=== PATIENT | female | born 1975 | race Caucasian/White ===

== ENCOUNTER 2025-03-01 10:00 | Outpatient (AMB) | payer OTHER, SELFPAY ==
--- NOTE | 2025-03-01 10:06 | MHC.PC.OV ---
Vital Signs 03/01/25 10:23 Height 5 ft 8 in Weight 188 lb BMI 28.6 BP 120/90 H Blood Pressure Location Lt brachial Position Sitting Respiration 16 Pulse 75 Pulse Source Pulse Oximeter Temp 98.2 F Temp Source Oral Pulse Oximetry (%) 98 Oxygen Delivery Method Room Air Intake Visit Reasons: [employer]/PErequest Intake Note: Pt is here today as a New Patient to est care/ PE Allergies No Known Allergies Allergy (Verified 03/01/25 10:41) Medication List - Last Reconciled 03/01/25 by Tiffany Lerner MD levonorgestrel (Mirena) intrauterine Tobacco use date assessed: 03/01/25 Dental Screening Dental Screen Date: 03/01/25 Did you have a dental visit in the last 12 months?: Yes Did you have a dental problem in the last 6 months where you did not have access to dental care?: Yes Was dental information given to patient?: Patient has dentist HPI [employer]/PErequest HPI Details 49-year-old lady, new to practice, here to establish care with a new PCP and for physical exam. Goes to [facility] for routine Pap and pelvic exam currently on Mirena for control. - Breast cancer screening: High risk due to family history, with regular mammograms, MRIs, and ultrasounds every six monthsfor screening - Prostate cancer: Family history includes her father with stage 4 prostate cancer and her father's uncle. - Diabetes mellitus type 2: Family history with her father on insulin therapy, and the patient is being screened for diabetes. - Hypertension and hyperlipidemia: Family history with her father affected. - Dementia: Maternal grandmother had dementia. - Macular degeneration: Maternal grandfather had macular degeneration. - Fungal toenail infection: Recurrent infection with occasional pain and snagging, not yet evaluated by a book packer. - Anxiety disorder: does not interfere with daily activities. PFSH Medical History Colon cancer screening Presence of Mirena IUD Surgical History (Updated 03/01/25 @ 10:51 by Tiffany Lerner MD) Previous section Hx of breast biopsy Family History (Updated 03/01/25 @ 10:49 by Tiffany Lerner MD) Maternal Aunt Breast CA Mother Breast CA Paternal Grandmother Breast CA Father Prostate cancer Type 2 diabetes mellitus Essential hypertension Dyslipidemia Paternal Uncle Stomach cancer Social History Housing: House Patient Tobacco Use Status: Former Tobacco user e-Cigarette/Vaping Use: Never Used service: No Current occupational status: employed Cognitive needs: No Hearing needs: No Vision needs: Yes Questionnaire PHQ-9 Over the last 2 weeks, how often have you been bothered by any of the following problems? 1. Little interest or pleasure in doing things: not at all 2. Feeling down, depressed, or hopeless: not at all 3. Trouble falling or staying asleep, or sleeping too much: several days 4. Feeling tired or having little energy: several days 5. Poor appetite or overeating: not at all 6. Feeling bad about yourself - or that you are a failure or have let yourself or your family down: not at all 7. Trouble concentrating on things, such as reading the newspaper or watching television: not at all 8. Moving or speaking so slowly that other people could have noticed. Or the opposite - being so fidgety or restless that you have been moving around a lot more than usual: not at all 9. Thoughts that you would be better off or of hurting yourself in some way: not at all Total score: 2 Depression Screening Interpretation: Negative Depression Screening Done: Yes 43324 - PHQ-9 Billing: Yes Source: Developed by Drs. Eldon Soto, Yaa Ballard, Giorgio Vazquez and colleagues, with an educational lissy from [employer]. Thrive Questionnaire Date Thrive assessed: 02/22/25 I am a: Patient What is your living situation today?: I have a steady place to live Within the past 12 months, did the food you bought not last and you didn't have the money to get more?: Never true Within the past 12 months, did you worry whether your food would run out before you got money to buy more?: Never true Do you have trouble paying for medicines?: No Do you have trouble getting transportation to medical appointments?: No Do you have trouble paying your heating and electricity bill?: No Do you have trouble taking care of your child, family member or friend?: No Do you have trouble with day-to-day activities such as bathing, preparing meals, shopping, managing finances, etc.?: No Are you currently unemployed and looking for a job?: No Are you interested in more education?: No Please select the resources that you would like help with: None Currently or been in a relationship where the following occur: No concerns reported THRIVE Score: 0 AUDIT C Alcohol Use Questionnaire (AUDIT-C) 1. How often do you have a drink containing alcohol?: 4 or more times a week 2. How many drinks containing alcohol do you have on a typical day when you are drinking?: 1 or 2 3. How often do you have six or more drinks on one occasion?: Monthly Total Score: 6 Score Reviewed/Action Taken: Yes MELIA-7 AMB Questionnaire MELIA-7 Date MELIA - 7 assessed: 03/01/25 Feeling nervous, anxious, or on edge: 1 = Several days Not being able to stop or control worryin = Several days Worrying too much about different things: 1 = Several days Trouble relaxin = Several days Being so restless that it is hard to sit still: 1 = Several days Becoming easily annoyed or irritable: 1 = Several days Feeling afraid as if something awful might happen: 0 = Not at all Total MELIA-7 score (0-4 normal; 5-9 mild; 10-14 moderate; 15-21 severe): 6 Source: Developed by Drs. Eldon Soto, Yaa Ballard, Giorgio Vazquez and colleagues, with an educational lissy from [employer]. MELIA-7 Assessment Billing MELIA-7 Assessment Tool: MELIA-7 Assessment 70601 Review of Systems Const Denies body aches, Denies fatigue, Denies fever(s) and Denies headache(s) Eyes Denies change in vision ENT Denies dizziness, Denies headache(s) and Denies nasal congestion Card Denies chest pain, Denies lightheadedness, Denies palpitations and Denies dyspnea Resp Denies chest congestion, Denies cough, Denies dyspnea and Denies wheezing GI Denies abdominal pain, Denies change in bowel habits and Denies heartburn Denies hematuria, Denies urinary frequency, Denies dysuria and Denies urinary urgency Skin/Breast Denies breast pain, Denies breast mass, Denies lesions and Denies rash Neuro Denies dizziness and Denies headache(s) Psych Reports no additional complaints Endo Denies fatigue, Denies polydipsia, Denies polyuria and Denies palpitations Hao/Lymph Denies easy bruising Aller/Immun Denies seasonal rhinorrhea and Denies wheezing Physical exam (Primary Care) Vital Signs: Last Vital Signs Temp 98.2 F 03/01/25 10:23 Pulse 75 03/01/25 10:23 Resp 16 03/01/25 10:23 BP 120/90 H 03/01/25 10:23 Pulse Ox 98 03/01/25 10:23 Oxygen Delivery Method Room Air 03/01/25 10:23 BMI result Body Mass Index 28.6 Tobacco/Smoking Status: Tobacco use Status Tobacco use date assessed 03/01/25 03/01/25 10:27 Patient Tobacco Use Status Former Tobacco user 03/01/25 10:27 e-Cigarette/Vaping Use Never Used 03/01/25 10:27 PHQ-9: PHQ-9 Score PHQ-9: Total score 2 03/01/25 10:41 Depression Screening Interpretation: Negative Thrive Assessment: Date of Thrive Assessment Date Thrive assessed 02/22/25 03/01/25 10:06 Currently or been in a relationship where the following occur: No concerns reported Advance Care Planning discussion: Completed/Scanned Date of discussion: 03/01/25 Who was present: Patient Forms completed: Health Care Proxy Time spent: 16-45 minutes Actual minutes spent: 2 Const General: no acute distress and alert Orientation/consciousness: patient oriented x3 HENMT Head: Yes normocephalic Ears: external ears normal General nose exam: Normal external nose present and No nasal discharge present Face and sinus: Yes face symmetric Mouth: Normal oral and palatal mucosa present and moist mucous membranes Eyes General: appearance normal, both eyes and all related structures Neck Neck: Yes full ROM, Yes no lymphadenopathy and Yes supple Thyroid: Thyroid normal Chest Breast/axilla palpation: normal palpation of the breasts Resp Effort & Inspection: normal respiratory effort and able to speak in complete sentences Auscultation: clear to auscultation bilaterally Cardio Rate: regular rate Rhythm: regular rhythm Heart sounds: S1 normal heart sound present and S2 normal heart sound present GI Palpation (GI): Soft to palpation, nontender, no guarding and no masses Auscultation: normal bowel sounds General: Yes no CVA tenderness Back/Spine/Pelvis Back: no CVA tenderness and No back tenderness Skin Other: Grayish discoloration in big toenail on right General skin exam: no rashes or lesions noted Nails: other Neuro General: patient oriented x3, gait normal, moves all extremities, Normal light touch and pain sensation, no focal motor deficits and CN's II-XI intact bilaterally Cognition (Neuro): normal cognition Gait exam (Neuro): Normal gait present Motor exam (neuro): 5/5 motor strength present throughout Extrem General: Yes normal to inspection, Yes full ROM, Yes no joint enlargement, Yes no pedal edema and Yes normal gait Psych Appearance: grossly normal and well kempt Mental Status: mental status grossly normal Speech and movement: Normal speech and movement present Affect: normal affect Attitude: cooperative Thought process: Normal thought process present Coding Level of Care Code New Pt Prev Care 40-64y(73701) Diagnoses Annual visit for general adult medical examination with abnormal findings Z00.01 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 Advance directive discussed with patient Z71.89 Colon cancer screening Z12.11 Additional Codes MELIA-7 Assessment Billing - MELIA-7 Assessment Tool: MELIA-7 Assessment 26539 ([id number]) PHQ-9 - 14002 - PHQ-9 Billing: Yes ([id number]) Vital Signs *Quality* - Advance Care Planning discussion: Completed/Scanned ([id number]) Vital Signs *Quality* - Time spent: 16-45 minutes ([id number]) Assessment & Plan Assessment & Plan (1) Annual visit for general adult medical examination with abnormal findings: Code(s): Z00.01 - Encounter for general adult medical examination with abnormal findings (2) 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 Advanced Directives help patients prepare for current and future decisions about their medical treatment and place of care. Discussed with patient that it is a process where a patients current condition and prognosis are reviewed, their wishes for information regarding their illness are elicited, and likely medical dilemmas are presented and options discussed. Healthcare proxy form completed today. The form can be amended as needed, reviewed yearly and make changes as needed (4) Colon cancer screening: Code(s): Z12.11 - Encounter for screening for malignant neoplasm of colon Category: Medical Plan During the visit, we discussed the patient's high risk for breast cancer due to family history and the importance of regular screenings. The patient is aware of her family history of diabetes and is being screened accordingly. We reviewed her blood pressure readings and discussed the importance of monitoring. The patient is up to date with her vaccinations, and we discussed the need for a tetanus booster. A referral for a colonoscopy was made due to her age and family history. We also addressed her anxiety disorder and heartburn, providing reassurance and management strategies. Orders: Orders Alanine Aminotransferase 03/01/25 Z00.01 - Encounter for general adult medical examination with abnormal findings, Z13.1 - Encounter for screening for diabetes mellitus, Z13.220 - Encounter for screening for lipoid disorders, Z97.5 - Presence of (intrauterine) contraceptive device Aspartate Amino Transferase 03/01/25 Z00.01 - Encounter for general adult medical examination with abnormal findings, Z13.1 - Encounter for screening for diabetes mellitus, Z13.220 - Encounter for screening for lipoid disorders, Z97.5 - Presence of (intrauterine) contraceptive device Basic Metabolic Panel Fasting 03/01/25 Z00.01 - Encounter for general adult medical examination with abnormal findings, Z13.1 - Encounter for screening for diabetes mellitus, Z13.220 - Encounter for screening for lipoid disorders, Z97.5 - Presence of (intrauterine) contraceptive device Complete Blood Count Auto Diff 03/01/25 Z00.01 - Encounter for general adult medical examination with abnormal findings, Z13.1 - Encounter for screening for diabetes mellitus, Z13.220 - Encounter for screening for lipoid disorders, Z97.5 - Presence of (intrauterine) contraceptive device Lipid Panel 03/01/25 Z00.01 - Encounter for general adult medical examination with abnormal findings, Z13.1 - Encounter for screening for diabetes mellitus, Z13.220 - Encounter for screening for lipoid disorders, Z97.5 - Presence of (intrauterine) contraceptive device Vitamin D 25-OH Total 03/01/25 Z00.01 - Encounter for general adult medical examination with abnormal findings, Z13.1 - Encounter for screening for diabetes mellitus, Z13.220 - Encounter for screening for lipoid disorders, Z97.5 - Presence of (intrauterine) contraceptive device Referrals Podiatry Referral 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
[2025-03-01 10:23] VITALS: BP 120/90; PULSE 75; RESP 16; TEMP 36.8; O2SAT 98; BMI 28.6
--- OUTSIDE RECORDS SUMMARY | 2025-03-01 11:20 | XMS_ITS | Clinical Summary ---
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 02/26/2024 Active cholecalciferol (VITAMIN D-3) 1,250 mcg (50,000 unit) capsule Take 1 capsule by mouth once a week. 07/10/2021 Active Active Problems Problem Noted Date Diagnosed Date At high risk for breast cancer 05/12/2024 Overview (05/12/2024): Empower testing from 2023: negative with T/C score of 59.4% Yearly mammogram and breast MRI Abnormal mammogram 05/26/2020 Overview (04/23/2024): Has repeat biopsy scheduled due to BIRADS 4 mammo Anxiety 04/12/2020 Atypical squamous cell toledo es of undetermined significance (ASCUS) on cervical cytology with positive high risk human papilloma virus (HPV) 09/24/2017 Overview (04/23/2024): 03/2013 - Neg, neg HPV 08/2017 - ASCUS, +HPV 09/24/17 - Colpo - MICHAEL I, needs repeat co-testing in 1 year 2018 Negative pap 2019 negative pap Fatigue 05/18/2012 Weight loss 05/18/2012 Tension headache 01/22/2011 Encounters Date Type Department Care Team Description 02/07/2025 9:07 AM EDT - 02/07/2025 11:59 PM EDT Hospital Encounter Radiology Department - [address] [address] Abnormal mammogram Discharge Disposition: Home or Self Care 02/07/2025 9:07 AM EDT - 02/07/2025 11:59 PM EDT Hospital Encounter Radiology Department - [address] [address] Abnormal mammogram Discharge Disposition: Home or Self Care from Last 3 Months Immunizations Name Administration Dates Next Due Influenza trivalent, 0.5mL, preservative free (Fluarix; FluLaval; Fluzone) ages 6mo and older (Afluria) 3 years and older 04/28/2021,03/08/2020,03/21/2018,01/17,03/27/2016,04/08/2015,04/02/2014 ,03/14/2013,02/22/2012 Deltagen SARS-CoV-2 COVID-19, mRNA, LNP-S, preservative free 06/21/2021,08/18/2020,07/28/2020 Pneumococcal polysaccharide 23 valent (Pneumovax 23) 2yo and older 03/27/2016 Td Tetanus diptheria (Tdvax) 7yo and older 01/07/2007 Tdap Tetanus diptheria acell ular pertussis (Boostrix; Adacel) 7yo and older 08/27/2013,01/22/2011 Surgical History Surgery Date Site/Laterality Comments SECTION PROCEDURE: HISTORICAL DELIVERY; COMMENT: 2013 CERVICAL BIOPSY W/ LOOP ELECTRODE EXCISION PROCEDURE: IL CONIZATION CERVIX W/WO D&C RPR ELTRD EXC; COMMENT: prior to having kids (first child born at age 35) BREAST BIOPSY PROCEDURE: BX BREAST; PERC NEEDLE CORE W/IMAG GUID; COMMENT: rt nipple milk duct removed BREAST SURGERY Right PROCEDURE: IL UNLISTED PROCEDURE BREAST; COMMENT: rt milk duct removed near nipple BX BREAST W DEVICE 1ST LESIO N ULTRASOUND GUIDE 01/22/2023 Right fibroadenoma Medical History Medical History Date Comments BRCA negative DX:BRCA negative ASCUS with positive high ris k HPV cervical 09/03/2017 DX:ASCUS with positive high risk HPV cervical Fibroadenoma 05/2020 DX:Fibroadenoma At high risk for breast cancer 05/12/2024 Family History Medical History Relation Name Comments Breast cancer Aunt mat aunt 50's maternal Diabetes Father Other: skin cancer Maternal Grandfather Other: Alzheimer's dis Maternal Grandmother Breast cancer Mother last 40's Stroke Paternal Grandfather of pneumonia in his 70s Breast cancer Paternal Grandmother Colon cancer Uncle worked with asbestos-paternal Ovarian cancer Neg Hx Prostate cancer Neg Hx Uterine cancer Neg Hx Relation Name Status Comments Aunt mat aunt 50's Alive Brother 1 Alive Brother 2 Alive Father Alive dm Maternal Grandfather degenat andres macular eye disease Maternal Grandmother Mother last 40's Alive breast Ca Paternal Grandfather (Age 70's) cva Paternal Grandmother Son 1 Alive healthy; Shiva ; 11/07 Son 2 Alive Uncle Social History Tobacco Use Types Packs/Day Years Used Date Smoking Tobacco: Former Cigarettes Q uit: 02/15/2017 Smokeless Tobacco: Never Tobacco Cessation:Counseling Given: Not Answered Alcohol Use Standard Drinks/Week Comments Yes 1.7 (1 standard drink = 0.6 oz p ure alcohol) Comments No Sex and Gender Information Value Date Recorded Sex Assigned at Not on file Legal Sex Female 8:02 PM EST Gender Identity Not on file Sexual Orientation Not on file Obstetrics History Para Term AB IAB SAB Ectopic Multiple Livin g Live Births 2 2 2 2 Date Outcome GA Total Labor Labor/2nd/3rd Weight Sex Type Anes PTL Nuria A1 A5 Name Clin Term Term Last Filed Vital Signs Vital Sign Reading Time Taken Comments Blood Pressure 127/82 06/01/2024 9:02 AM EST Pulse 67 06/01/2024 9:02 AM EST Temperature - - Respiratory Rate - - Oxygen Saturation - - Inhaled Oxygen Concentration - - Weight 81.2 kg (179 lb) 06/01/2024 9:02 AM EST Height 172.7 cm (5' 8 ) 04/22/2024 9:42 AM EDT Body Mass Index 27.22 04/22/2024 9:42 AM EDT Plan of Treatment Upcoming Encounters Date Type Department Care Team (Late st Contact Info) Description 08/10/2025 9:30 AM EST Appointment Radiology Department - [address] [phone] 08/10/2025 10:00 AM EST Appointment Radiology Department - [address] [address] Health Maintenance Due Date Last Done Comments Hepatitis B Vaccines (1 of 3 - 19+ 3-dose series) 1996 Colorectal Cancer Screening: Colonoscopy 06/08/2022 Social Influencers of Health Screening 06/08/2022 DTaP,Tdap,and Td Vaccines (4 - Td or Tdap) 08/27/2023 08/27/2013, 01/22/2011, 01/07/2007 Depression Screening 06/30/2024 COVID-19 Vaccine ( - season) 2025 06/21/2021, 08/18/2020, 07/28/2020 Influenza Vaccine (#1) 2025 , 04/25/2023, 02/27/2022, Additional history exists Cervical Cancer Screening: HPV 04/12/2025 04/12/2020 Breast Cancer Screening 02/07/2026 02/08/20, 08/17/2024, 08/05/2023, Additional history exists Cholesterol Screening (Lipid Panel) 08/22/2026 08/22/2021 Pneumococcal Vaccine: Pediatrics (0 to 5 Years) and At-Risk Patients (6 to 49 Years) Aged Out 03/27/2016 No longer eligible based on patient's age to complete this topic HIV Screening Completed 07/10/2021 Hepatitis C Screening Completed 07/10/2021 HIB Vaccines Aged Out No longer eligi ble based on patient's age to complete this topic HPV Vaccines Aged Out No longer eligi ble based on patient's age to complete this topic Hepatitis A Vaccines Aged Out No long er eligible based on patient's age to complete this topic IPV Vaccines Aged Out No longer eligi ble based on patient's age to complete this topic MMR Vaccines Aged Out No longer eligi ble based on patient's age to complete this topic Meningococcal ACWY Vaccine Aged Out N o longer eligible based on patient's age to complete this topic Meningococcal B Vaccine Aged Out No l onger eligible based on patient's age to complete this topic RSV Immunization Patients Under 20 months Aged Out No longer eligible based on patient's age to complete this topic Varicella Vaccines Aged Out No longer eligible based on patient's age to complete this topic Procedures Procedure Name Priority Date/Time Associated Diagnosis Comments US BREAST LIMITED RIGHT Routine 02/07/2025 9:30 AM EDT Abnormal mammogram MG MAMMO DIAGNOSTIC ADDL VIEWS RIGHT Routine 02/07/2025 9:17 AM EDT Abnormal mammogram LIPID PANEL Routine 08/22/2021 HM HEPATITIS C SCREENING Routine 07/10/2021 HIV SCREENING Routine 07/10/2021 HPV Routine 04/12/2020 from Last 3 Months or Most Recently Relevant to Health Maintenance Results * US Breast Limited Right (02/07/2025 9:30 AM EDT) Anatomical Region Laterality Modality Breast Right Ultrasound 02/07/2025 9:36 AM EDT Impressions 02/07/2025 9:54 AM EDT No significant interval change in the biopsy-proven fibroadenoma in the inner right breast compared with most recent imaging. No new suspicious features. It had enlarged on breast MRI 06/02/2024. Recommend 6 month follow-up diagnostic mammogram and right breast ultrasound. BREAST DENSITY: C - The breasts are heterogeneously dense which may obscure small masses. BI-RADS CATEGORY: 3 - PROBABLY BENIGN RECOMMENDATION: Short Interval Follow-up is recommended for the right breast in 6 months. Ultrasound of the right breast is recommended in 6 months. MAMMO LOCATION: [facility], [address] [place] [address], [phone], . -------- FINAL REPORT -------- Dictated By: Brenna Palomares Dictated Date: 02/07/2025 09:36 ET Assigned Physician: Brenna Palomares Reviewed and Electronically Signed By: Brenna Palomares Signed Date: 02/07/2025 09:54 ET Workstation ID: [id number] Transcribed By: Self Edit Transcribed Date: 02/07/2025 09:36 ET Narrative 02/07/2025 9:54 AM EDT EXAM: Unilateral right diagnostic mammogram and right breast ultrasound HISTORY: Follow-up enlarging biopsy-proven fibroadenoma (01/22/2023) in the inner right breast as seen on breast MRI 06/02/2024, right breast ultrasound 06/09/2024, and mammography 08/17/2024. COMPARISON: Mammography as recent as 08/17/2024 and as far back as 07/24/2021; right breast ultrasound 06/09/2024 and 01/14/2023; breast MRI exams as recent as 06/02/2024 TECHNIQUE: Unilateral right mediolateral oblique and craniocaudal views were obtained digitally with 3-D mammogram (digital breast tomosynthesis). Computer-aided detection was utilized in evaluation of this exam (CAD). FINDINGS: Compared with the most recent mammogram from 08/17/2024, stable to slight decrease in size of the biopsy-proven fibroadenoma in the inner breast at 2/3 o'clock position middle depth with an associated biopsy clip. Margins remain circumscribed and smooth. No new suspicious mass, architectural distortion, or suspicious calcifications. Targeted sonography of the biopsy-proven fibroadenoma performed at the 2 o'clock position, 2 cm from the nipple. The homogeneous hypoechoic lesion remains circumscribed and measures 1.1 x 1.0 x 0.6 cm compared with 1.2 x 1.1 x 0.6 cm on 06/09/2024. us Papi Willis CNM IMG US PROCEDURES Final Resul t * MG Mammo Diagnostic Addl Views Right (02/07/2025 9:17 AM EDT) Anatomical Region Laterality Modality Breast Right Mammography 02/07/2025 9:36 AM EDT Impressions 02/07/2025 9:54 AM EDT No significant interval change in the biopsy-proven fibroadenoma in the inner right breast compared with most recent imaging. No new suspicious features. It had enlarged on breast MRI 06/02/2024. Recommend 6 month follow-up diagnostic mammogram and right breast ultrasound. BREAST DENSITY: C - The breasts are heterogeneously dense which may obscure small masses. BI-RADS CATEGORY: 3 - PROBABLY BENIGN RECOMMENDATION: Short Interval Follow-up is recommended for the right breast in 6 months. Ultrasound of the right breast is recommended in 6 months. MAMMO LOCATION: [facility], [address] [place] [address], [id number], . -------- FINAL REPORT -------- Dictated By: Brenna Palomares Dictated Date: 02/07/2025 09:36 ET Assigned Physician: Brenna Palomares Reviewed and Electronically Signed By: Brenna Palomares Signed Date: 02/07/2025 09:54 ET Workstation ID: [id number] Transcribed By: Self Edit Transcribed Date: 02/07/2025 09:36 ET Narrative 02/07/2025 9:54 AM EDT EXAM: Unilateral right diagnostic mammogram and right breast ultrasound HISTORY: Follow-up enlarging biopsy-proven fibroadenoma (01/22/2023) in the inner right breast as seen on breast MRI 06/02/2024, right breast ultrasound 06/09/2024, and mammography 08/17/2024. COMPARISON: Mammography as recent as 08/17/2024 and as far back as 07/24/2021; right breast ultrasound 06/09/2024 and 01/14/2023; breast MRI exams as recent as 06/02/2024 TECHNIQUE: Unilateral right mediolateral oblique and craniocaudal views were obtained digitally with 3-D mammogram (digital breast tomosynthesis). Computer-aided detection was utilized in evaluation of this exam (CAD). FINDINGS: Compared with the most recent mammogram from 08/17/2024, stable to slight decrease in size of the biopsy-proven fibroadenoma in the inner breast at 2/3 o'clock position middle depth with an associated biopsy clip. Margins remain circumscribed and smooth. No new suspicious mass, architectural distortion, or suspicious calcifications. Targeted sonography of the biopsy-proven fibroadenoma performed at the 2 o'clock position, 2 cm from the nipple. The homogeneous hypoechoic lesion remains circumscribed and measures 1.1 x 1.0 x 0.6 cm compared with 1.2 x 1.1 x 0.6 cm on 06/09/2024. Self Referral scm IMG BI PROCEDURES Final Resu lt * (ABNORMAL) Lipid panel (08/22/2021) [facility] LDL/HDL Ratio 5(A) 0 - 4 Triglycerides 186(A) 0 - 150 mg/dL Cholesterol 238(A) 0 - 200 mg/dL HDL 49 >=40 mg/dL LDL Cholesterol 152(A) 0 - 100 mg/dL Blood Venous blood specimen / Unknown Result [facility] Provider LAB BLOOD ORDERABLES Anjali l Result * HIV Screening (07/10/2021) [facility] HIV Screening Abstracted Result [facility] Provider HEALTH MAINTENANCE Final Result * Hepatitis C Screening (07/10/2021) [facility] Hepatitis C Screening Abstracted Result [facility] Provider HEALTH MAINTENANCE Final Result * Cervical Cancer Screening: HPV (04/12/2020) [facility] Cervical Cancer Screening: HPV Negative, Abstracted Result [facility] Provider HEALTH MAINTENANCE Final Result from Last 3 Months or Most Recently Relevant to Health Maintenance Insurance Care Teams 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
--- OUTSIDE RECORDS SUMMARY | 2025-03-01 11:20 | XMS_ITS ---
Author Name [facility] Organization Unknown Care Team Organization Name Specialty Phone Email Start Date End [facility] 03/28/2023
== END 2025-03-01 16:49 | disposition home or self-care (01) ==
LOC: HO.HMCC 10:01
PROVIDERS: PCP Internal Medicine; Visit Provider Internal Medicine
DX: Z00.01 Encounter for general adult medical examination with abnormal findings (principal); Q84.6 Other congenital malformations of nails; Z71.89 Other specified counseling; Z12.11 Encounter for screening for malignant neoplasm of colon; Z00.00 Encounter for general adult medical examination without abnormal findings

== ENCOUNTER → 2025-03-01 10:00 | Outpatient (BNVA) | payer OTHER, SELFPAY | PROVIDERS: PCP Internal Medicine; Visit Provider Internal Medicine | DX: Z00.01 Encounter for general adult medical examination with abnormal findings (principal); E11.9 Type 2 diabetes mellitus without complications; Q84.6 Other congenital malformations of nails; I10 Essential (primary) hypertension; E78.5 Hyperlipidemia, unspecified; F03.90 Unspecified dementia, unspecified severity, without behavioral disturbance, psychotic disturbance, mood disturbance, and anxiety; Z71.89 Other specified counseling | CPT/HCPCS: 96127 ==

== ENCOUNTER 2025-03-24 08:40 | Outpatient (REF) | payer OTHER, SELFPAY ==
--- OUTSIDE RECORDS SUMMARY | 2025-03-24 09:14 | XMS_ITS | Clinical Summary ---
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 Sewer Name Role Phone Dio Biggs MD Primary Care Provider [phone]- [phone] Allergies No known active allergies Medications L [...] PM EDT Hospital Encounter Radiology Department - [address] [phone] Abnormal mammogram Discharge Disposition: Home or Self Care 02/07/2025 9:07 AM EDT - 02/07/2025 11:59 PM EDT Hospital Encounter Radiology Department - [address] [address] Abnormal mammogram Discharge Disposition: Home or Self Care from Last 3 Months Immunizations Name Administration Dates Next Due Influenza trivalent, 0.5mL, preservative free (Fluarix; FluLaval; Fluzone) ages 6mo and older (Afluria) 3 years and older 04/28/2021,03/08/2020,03/21/2018,01/17,03/27/2016,04/08/2015,04/02/2014 ,03/14/2013,02/22/2012 [employer] SARS-CoV-2 COVID-19, mRNA, LNP-S, preservative free 06/21/2021,08/18/2020,07/28/2020 Pneumococcal polysaccharide 23 valent (Pneumovax 23) 2yo and older 03/27/2016 Td Tetanus diptheria (Tdvax) 7yo and older 01/07/2007 Tdap Tetanus diptheria acell ular pertussis (Boostrix; Adacel) 7yo and older 08/27/2013,01/22/2011 Surgical History Surgery Date Site/Laterality Comments SECTION PROCEDURE: HISTORICAL DELIVERY; COMMENT: 2013 CERVICAL BIOPSY W/ LOOP ELECTRODE EXCISION PROCEDURE: IN CONIZATION CERVIX W/WO D&C RPR ELTRD EXC; COMMENT: prior to having kids (first child born at age 35) BREAST BIOPSY PROCEDURE: BX BREAST; PERC NEEDLE CORE W/IMAG GUID; COMMENT: rt nipple milk duct removed BREAST SURGERY Right PROCEDURE: IN UNLISTED PROCEDURE BREAST; COMMENT: rt milk duct [...] 9:30 AM EST Appointment Radiology Department - [address] [phone] 08/10/2025 10:00 AM EST Appointment Radiology Department - [address] [phone] Health Maintenance Due Date Last Done Comments [...] is recommended in 6 months. MAMMO LOCATION: [facility], [address] [place] [address], [phone], . -------- FINAL REPORT -------- Dictated By: Brenna Palomares Dictated Date: 02/07/2025 09:36 ET Assigned Physician: Brenna Palomares Reviewed and Electronically Signed By: Brenna Palomares Signed Date: 02/07/2025 09:54 ET Workstation ID: [id number] Transcribed By: Self Edit Transcribed Date: 02/07/2025 [...] is recommended in 6 months. MAMMO LOCATION: [facility], [address] [place] [address], [phone], . -------- FINAL REPORT -------- Dictated By: Brenna Palomares Dictated Date: 02/07/2025 09:36 ET Assigned Physician: Brenna Palomares Reviewed and Electronically Signed By: Brenna Palomares Signed Date: 02/07/2025 09:54 ET Workstation ID: [id number] Transcribed By: Self Edit Transcribed Date: 02/07/2025 [...] Resu lt * (ABNORMAL) Lipid panel (08/22/2021) [facility] LDL/HDL Ratio 5(A) 0 - 4 Triglycerides 186(A) 0 - 150 mg/dL Cholesterol 238(A) 0 - 200 mg/dL HDL 49 >=40 mg/dL LDL Cholesterol 152(A) 0 - 100 mg/dL Blood Venous blood specimen / Unknown Result [facility] Provider LAB BLOOD ORDERABLES Anjali l Result * HIV Screening (07/10/2021) [facility] HIV Screening Abstracted Result [facility] Provider HEALTH MAINTENANCE Final Result * Hepatitis C Screening (07/10/2021) [facility] Hepatitis C Screening Abstracted Result [facility] Provider HEALTH MAINTENANCE Final Result * Cervical Cancer Screening: HPV (04/12/2020) [facility] Cervical Cancer Screening: HPV Negative, Abstracted Result [facility] Provider HEALTH MAINTENANCE Final Result from Last 3 Months or Most Recently Relevant to Health Maintenance Insurance Care Teams Sleeve Sewer Relationship Specialty Start Date End Date Dio Biggs MD [address] [place] [address] PCP - General Internal Medicine 11/12/21
[2025-03-24 10:19] LABS: MANUAL DIFF FLAG NO
[2025-03-24 10:30] LABS: Hematocrit 42.0 % (37.0-47.0); Hemoglobin 14.1 g/dl (12.0-16.0); Imm Gran Abs Auto 0.01 X10*3/uL (0.00-0.03); Imm Gran Pct Auto 0.2 % (0.0-0.4); Lymphocytes Absolute Auto 1.4 X10*3/uL (1.2-4.9); Mean Corpuscular HGB Conc 33.6 g/dl (31.0-35.0); Mean Corpuscular Hemoglobin 30.2 pg (27.0-33.0); Mean Corpuscular Volume 89.9 fL (80.0-98.0); NRBC Abs Auto 0.000 X10*3/uL (0.0-0.012); NRBC Pct Auto 0.0 /100WBC (0.0-0.2); Platelet Count 265 X10*3/uL (160-400); Red Blood Count 4.67 X10*6/uL (4.20-5.50); White Blood Count 4.1 X10*3/uL (4.8-10.8)
[2025-03-24 11:08] LABS: Alanine Aminotransferase 22 U/L (0-31); Anion Gap 8 (12-20); Aspartate Amino Transferase 20 U/L (5-31); Blood Urea Nitrogen 16 mg/dL (9-16); Calcium 9.0 mg/dL (8.4-10.2); Carbon Dioxide 29 mmol/L (22-29); Chloride 108 mmol/L (96-108); Cholesterol 248 mg/dL (<200); Estimated Glomerular Filt Rate > 60; HDL Cholesterol 48 mg/dL (>40); Potassium 4.3 mmol/L (3.3-5.1); Sodium 141 mmol/L (135-145); Triglycerides 82 mg/dL (<150)
== END 2025-03-24 08:41 | disposition home or self-care (01) ==
LOC: HO.HMGCLDS 08:40
PROVIDERS: PCP Internal Medicine; Visit Provider Internal Medicine
DX: Z00.01 Encounter for general adult medical examination with abnormal findings (principal); Z13.220 Encounter for screening for lipoid disorders; Z13.1 Encounter for screening for diabetes mellitus; Z97.5 Presence of (intrauterine) contraceptive device; Z13.6 Encounter for screening for cardiovascular disorders; Z13.21 Encounter for screening for nutritional disorder
CPT/HCPCS: 36415; 80048; 80061; 82306; 84450; 84460; 85025

== ENCOUNTER 2025-04-06 08:36 | Outpatient (REF) | payer OTHER, SELFPAY | END 2025-04-06 08:37 | disposition home or self-care (01) | LOC: HO.LNP 08:36 | PROVIDERS: PCP Internal Medicine; Visit Provider Student in an Organized Health Care Education/Training Program | DX: B35.1 Tinea unguium (principal); B35.3 Tinea pedis | CPT/HCPCS: 87101; 87220; 88304; 88312 ==

== ENCOUNTER 2025-04-06 08:36 | Outpatient (AMB) | payer OTHER, SELFPAY ==
[2025-04-06 08:41] VITALS: BMI 28.1
--- NOTE | 2025-04-06 08:41 | A.OFFVIS_ITS ---
Vital Signs 04/06/25 08:41 Height 5 ft 8 in Weight 185 lb BMI 28.1 Intake Visit Reasons: malformation of nails Intake Note: Madison is a 49 year old female who presents today as a new patient for an evaluation of her malformed toenail of the right hallux. The toe nail has a yellowish discoloration and pt states her toe nail persist with infection which will lead to the nail falling off. she states she is not in any pain and she has tried OTC treatment. This has been an ongoing issue for about 2 years. Pt has concerns of a possible ingrown on the medial border of the right hallux. Allergies No Known Allergies Allergy (Verified 04/06/25 08:42) HPI HPI malformation of nails: Details: The patient is a 49-year-old female no pertinent past medical history presents for initial evaluation for right big toenail possible fungal infection. The issue began approximately two years ago, following a pedicure received for her wedding. The patient has not sought prior podiatric care or used prescription medications, relying instead on topical treatments without improvement. The toenail has fallen off multiple times, with the most recent occurrence four weeks ago. The nail regrowth has been abnormal, with discoloration and fragmentation noted. She does have a history of a ingrown toenail to her right big toe which was removed by a direct care supervisor when she was younger. She notes that still grows fragmented and is interested in treatment for his. The patient also reports symptoms consistent with tinea pedis, including itching and flaking of the skin on the right foot, particularly in the summer. No prior treatments for tinea pedis have been attempted. Surgical History: - Dingle procedure in childhood for nail issues Social History: - Limited physical activity; occasional walking with sneakers PFSH Medical History Colon cancer screening Presence of Mirena IUD Surgical History (Updated 03/01/25 @ 10:51 by Tiffany Lerner MD) Previous section Hx of breast biopsy Family History (Updated 03/01/25 @ 10:49 by Tiffany Lerner MD) Maternal Aunt Breast CA Mother Breast CA Paternal Grandmother Breast CA Father Prostate cancer Type 2 diabetes mellitus Essential hypertension Dyslipidemia Paternal Uncle Stomach cancer Social History Housing: House Patient Tobacco Use Status: Former Tobacco user e-Cigarette/Vaping Use: Never Used service: No Current occupational status: employed Cognitive needs: No Hearing needs: No Vision needs: Yes Review of Systems Const All systems reviewed & are unremarkable except as noted in HPI and below Physical Exam Vital Signs: BMI result Body Mass Index 28.1 Extrem Other: *Bilateral Lower Extremity Focused Exam Vascular: DP/PT 2/4, CFT<3s to all digits, TG warm to cool, no pedal edema. Derm: brittle, short, right hallux nail with yellow discoloration and fragmented nail worse of the medial nail border. Right 5th, left hallux, and left 5th toe nail discoloration and thickening, minimal subungual debris. Neuro: Protective sensation intact to bilateral lower extremities MSK: No pain on palpation of the medial border right hallux. Results Reviewed Results Reviewed: Laboratory Tests 03/24/25 09:00 AST 20 ALT 22 Assessment & Plan Assessment & Plan (1) Tinea unguium: Code(s): B35.1 - Tinea unguium Category: Medical Plan: * Nail biopsy performed of bilateral hallux nail. * Discussed treatment options including topical treatment versus oral antifungal medications. * Explained that oral antifungals such as terbinafine (Lamisil) may cause gastro intestinal upset, headache, rash, taste disturbances, and hepatotoxicity. Baseline and monthly liver function monitoring is recommended during therapy. Patients should be advised to report symptoms such as jaundice, dark urine, or persistent nausea. * Patient was counseled on the importance of anti-fungal foot hygiene, including daily washing and thorough drying of feet, regular changing of socks, and use of breathable footwear. Recommended antifungal sprays shoes. Education provided on keeping toenails trimmed and clean to reduce risk of fungal infections. Preventive strategies discussed to minimize recurrence of fungal infections. * Discussed that she may need a total nail avulsion of the right hallux if the remaining aspects of the nail do not fall off on its own. * Follow up in 3 weeks. (2) Tinea pedis: Code(s): B35.3 - Tinea pedis Category: Medical Qualifiers: Laterality: right Qualified Code(s): B35.3 - Tinea pedis Plan: * Rx clotrimazole ointment Orders: Orders Fungus Cult Hair/Skin/Nail Today B35.1 - Tinea unguium Surgical Today B35.1 - Tinea unguium Medications: New clotrimazole 1% (Antifungal (clotrimazole)) Apply to bottom of feet daily. 1 appl topical BID 30 grams 3RF athlete's foot 4 weeks B35.3 - Tinea pedis Coding Level of Care Code New Pt Level 4 (56213) Diagnoses Tinea unguium B35.1 Tinea pedis of right foot B35.3 Laterality: right Time Spent (min) 30
== END 2025-04-06 09:04 | disposition home or self-care (01) ==
LOC: HO.HPODS 08:36
PROVIDERS: PCP Internal Medicine; Visit Provider Student in an Organized Health Care Education/Training Program
DX: B35.1 Tinea unguium (principal); B35.3 Tinea pedis
CPT/HCPCS: 99204

== ENCOUNTER 2025-05-04 13:18 | Outpatient (AMB) | payer OTHER, SELFPAY ==
[2025-05-04 13:40] VITALS: BMI 28.1
--- NOTE | 2025-05-04 13:40 | A.OFFVIS_ITS ---
Vital Signs 05/04/25 13:40 Height 5 ft 8 in Weight 185 lb BMI 28.1 Intake Visit Reasons: malformation of nails Intake Note: Madison is a 49 year old female who presents today for a follow up on her malformed nails. During her last visit her nails where debrided and specimens where sent out, the results are in patients chart. Patient reports her nails has remained the same Allergies No Known Allergies Allergy (Verified 05/04/25 13:42) HPI HPI malformation of nails: Details: The patient is a 49-year-old female no pertinent past medical history presents for nail pathology review. She has also been using topical clotrimazole to her right foot however she does not notice any improvement. History: The issue began approximately two years ago, following a pedicure received for her wedding. The patient has not sought prior podiatric care or used prescription medications, relying instead on topical treatments without improvement. The toenail has fallen off multiple times, with the most recent occurrence four weeks ago. The nail regrowth has been abnormal, with discoloration and fragmentation noted. She does have a history of a ingrown toenail to her right big toe which was removed by a color laboratory technician when she was younger. She notes that still grows fragmented and is interested in treatment for his. The patient also reports symptoms consistent with tinea pedis, including itching and flaking of the skin on the right foot, particularly in the summer. No prior treatments for tinea pedis have been attempted. Surgical History: - Dingle procedure in childhood for nail issues Social History: - Limited physical activity; occasional walking with sneakers PFSH Medical History Colon cancer screening Presence of Mirena IUD Surgical History (Updated 03/01/25 @ 10:51 by Tiffany Lerner MD) Previous section Hx of breast biopsy Family History (Updated 03/01/25 @ 10:49 by Tiffany Lerner MD) Maternal Aunt Breast CA Mother Breast CA Paternal Grandmother Breast CA Father Prostate cancer Type 2 diabetes mellitus Essential hypertension Dyslipidemia Paternal Uncle Stomach cancer Social History Housing: House Patient Tobacco Use Status: Former Tobacco user e-Cigarette/Vaping Use: Never Used service: No Current occupational status: employed Cognitive needs: No Hearing needs: No Vision needs: Yes Review of Systems Const All systems reviewed & are unremarkable except as noted in HPI and below Physical Exam Vital Signs: BMI result Body Mass Index 28.1 Extrem Other: *Bilateral Lower Extremity Focused Exam Vascular: DP/PT 2/4, CFT<3s to all digits, TG warm to cool, no pedal edema. Derm: brittle, short, right hallux nail with yellow discoloration and fragmented nail worse of the medial nail border. Right 5th, left hallux, and left 5th toe nail discoloration and thickening, minimal subungual debris. Neuro: Protective sensation intact to bilateral lower extremities MSK: No pain on palpation of the medial border right hallux. Results Reviewed Results Reviewed: Fungus Cult Hair/Skin/Nail Final 05/02/25-1323 Fungus present on culture. Does not resemble a dermatophyte. Multiple morphologic types. Result: Trichophyton species 04/06/25 Pathology Diagnosis Nail, right and left hallux (clippings): -Nail with rare fungal hyphae consistent with onychomycosis Assessment & Plan Assessment & Plan (1) Tinea unguium: Code(s): B35.1 - Tinea unguium Category: Medical Plan: * Reviewed nail pathology and culture results with the patient. * Discussed treatment options including topical treatment versus oral antifungal medications. * Explained that oral antifungals such as terbinafine (Lamisil) may cause gastrointestinal upset, headache, rash, taste disturbances, and hepatotoxicity. Baseline and monthly liver function monitoring is recommended during therapy. Patients should be advised to report symptoms such as jaundice, dark urine, or persistent nausea. * Patient was counseled on the importance of anti-fungal foot hygiene, including daily washing and thorough drying of feet, regular changing of socks, and use of breathable footwear. Recommended antifungal sprays shoes. Education provided on keeping toenails trimmed and clean to reduce risk of fungal infections. Preventive strategies discussed to minimize recurrence of fungal infections. * Patient states that she likely trial topical treatment at this time. * Rx ciclopirox * Follow up 3 months (2) Tinea pedis: Code(s): B35.3 - Tinea pedis Category: Medical Qualifiers: Laterality: right Qualified Code(s): B35.3 - Tinea pedis Plan: * Continue topical clotrimazole * May refer for alternative topical medication by next visit Medications: New ciclopirox 8% Apply to fungal toenails daily. Remove build-up at the end of the week. 1 appl topical BEDTIME 6.6 mL 4RF Nail fungus 4 months B35.1 - Tinea unguium Coding Level of Care Code Est Pt Level 3 (65139) Diagnoses Tinea unguium B35.1 Tinea pedis of right foot B35.3 Laterality: right Time Spent (min) 25
== END 2025-05-04 13:46 | disposition home or self-care (01) ==
LOC: HO.HPODS 13:19
PROVIDERS: PCP Internal Medicine; Visit Provider Student in an Organized Health Care Education/Training Program
DX: B35.1 Tinea unguium (principal); B35.3 Tinea pedis
CPT/HCPCS: 99213

== ENCOUNTER 2025-05-25 11:04 | Outpatient (AMB) | payer OTHER, SELFPAY ==
[2025-05-25 11:33] VITALS: BP 116/80; PULSE 67; RESP 16; TEMP 36.7; O2SAT 96; BMI 29.2
--- NOTE | 2025-05-25 11:33 | A.OFFPC_ITS ---
Vital Signs 05/25/25 11:33 Height 5 ft 8 in Weight 192 lb BMI 29.2 BP 116/80 Blood Pressure Location Lt brachial Position Sitting Respiration 16 Pulse 67 Pulse Source Pulse Oximeter Temp 98.0 F Temp Source Oral Pulse Oximetry (%) 96 Oxygen Delivery Method Room Air Intake Visit Reasons: Blood test results followup and menopause Intake Note: Pt is here today for her lab f/u results Allergies No Known Allergies Allergy (Verified 05/25/25 13:11) Medication List - Last Reconciled 05/25/25 by Tiffany Lerner MD ciclopirox 8% 1 appl topical BEDTIME 4 months clotrimazole 1% 1 appl topical BID 1 month levonorgestrel (Mirena) intrauterine Tobacco use date assessed: 05/25/25 Dental Screening Dental Screen Date: 05/25/25 Did you have a dental visit in the last 12 months?: Yes Did you have a dental problem in the last 6 months where you did not have access to dental care?: Yes Was dental information given to patient?: Patient has dentist HPI Blood test results followup and menopause HPI Details The patient is a 49 year old individual presenting for review of blood work and discussion of perimenopausal symptoms. Recent lab results show borderline cholesterol, normal blood sugar of 87, and normal kidney and liver function. The patient is overweight but does not have hypertension or diabetes. The patient previously followed the Weight Watchers diet with good results but is not on a specific diet currently. The patient is experiencing perimenopausal symptoms including feeling hot, mood swings, and brain fog, despite being on a Mirena IUD . The patient reports disturbed sleep due to pain in the shoulders and hips from lying on them, which causes frequent tossing and turning. The patient has been taking Advil PM to help with sleep. The patient also reports snoring, which was worse with increased alcohol intake but has improved with reduced consumption. The patient has received the flu shot and is up-to-date with COVID immunizations. PFSH Medical History Dyslipidemia Colon cancer screening Presence of Mirena IUD Surgical History Previous section Hx of breast biopsy Family History (Updated 05/29/25 @ 16:20 by Tiffany Lerner MD) Maternal Aunt Breast CA Mother Breast CA Paternal Grandmother Breast CA Father Prostate cancer Type 2 diabetes mellitus Essential hypertension Dyslipidemia Atrial fibrillation Paternal Uncle Stomach cancer Social History Housing: House Patient Tobacco Use Status: Former Tobacco user e-Cigarette/Vaping Use: Never Used service: No Current occupational status: employed Cognitive needs: No Hearing needs: No Vision needs: Yes Questionnaire PHQ-9 Over the last 2 weeks, how often have you been bothered by any of the following problems? 1. Little interest or pleasure in doing things: not at all 2. Feeling down, depressed, or hopeless: not at all 3. Trouble falling or staying asleep, or sleeping too much: several days 4. Feeling tired or having little energy: several days 5. Poor appetite or overeating: not at all 6. Feeling bad about yourself - or that you are a failure or have let yourself or your family down: not at all 7. Trouble concentrating on things, such as reading the newspaper or watching television: not at all 8. Moving or speaking so slowly that other people could have noticed. Or the opposite - being so fidgety or restless that you have been moving around a lot more than usual: not at all 9. Thoughts that you would be better off or of hurting yourself in some way: not at all Total score: 2 Depression Screening Interpretation: Negative Depression Screening Done: Yes Source: Developed by Drs. Eldon Soto, Yaa Ballard, Giorgio Vazquez and colleagues, with an educational lissy from [employer]. Thrive Questionnaire Date Thrive assessed: 02/22/25 I am a: Patient What is your living situation today?: I have a steady place to live Within the past 12 months, did the food you bought not last and you didn't have the money to get more?: Never true Within the past 12 months, did you worry whether your food would run out before you got money to buy more?: Never true Do you have trouble paying for medicines?: No Do you have trouble getting transportation to medical appointments?: No Do you have trouble paying your heating and electricity bill?: No Do you have trouble taking care of your child, family member or friend?: No Do you have trouble with day-to-day activities such as bathing, preparing meals, shopping, managing finances, etc.?: No Are you currently unemployed and looking for a job?: No Are you interested in more education?: No Please select the resources that you would like help with: None Currently or been in a relationship where the following occur: No concerns reported THRIVE Score: 0 MELIA-7 AMB Questionnaire MELIA-7 Date MELIA - 7 assessed: 03/01/25 Feeling nervous, anxious, or on edge: 1 = Several days Not being able to stop or control worryin = Several days Worrying too much about different things: 1 = Several days Trouble relaxin = Not at all Being so restless that it is hard to sit still: 1 = Several days Becoming easily annoyed or irritable: 1 = Several days Feeling afraid as if something awful might happen: 0 = Not at all Total MELIA-7 score (0-4 normal; 5-9 mild; 10-14 moderate; 15-21 severe): 5 Source: Developed by Drs. Eldon Soto, Yaa Ballard, Giorgio Vazquez and colleagues, with an educational lissy from [employer]. Review of Systems Const Denies body aches, Denies fatigue, Denies fever(s) and Denies headache(s) Eyes Denies change in vision ENT Denies dizziness, Denies headache(s) and Denies nasal congestion Card Denies chest pain, Denies lightheadedness, Denies palpitations and Denies dyspnea Resp Denies chest congestion, Denies cough, Denies dyspnea and Denies wheezing GI Denies abdominal pain, Denies change in bowel habits and Denies heartburn Denies hematuria, Denies urinary frequency, Denies dysuria and Denies urinary urgency Skin/Breast Denies breast pain, Denies breast mass, Denies lesions and Denies rash Neuro Denies dizziness and Denies headache(s) Psych Reports no additional complaints Endo Denies fatigue, Denies polydipsia, Denies polyuria and Denies palpitations Hao/Lymph Denies easy bruising Aller/Immun Denies seasonal rhinorrhea and Denies wheezing Physical exam (Primary Care) Vital Signs: Last Vital Signs Temp 98.0 F 05/25/25 11:33 Pulse 67 05/25/25 11:33 Resp 16 05/25/25 11:33 BP 116/80 05/25/25 11:33 Pulse Ox 96 05/25/25 11:33 Oxygen Delivery Method Room Air 05/25/25 11:33 BMI result Body Mass Index 29.2 Tobacco/Smoking Status: Tobacco use Status Tobacco use date assessed 05/25/25 05/25/25 11:38 Patient Tobacco Use Status Former Tobacco user 05/25/25 11:38 e-Cigarette/Vaping Use Never Used 05/25/25 11:38 PHQ-9: PHQ-9 Score PHQ-9: Total score 2 05/25/25 13:11 Depression Screening Interpretation: Negative Thrive Assessment: Date of Thrive Assessment Date Thrive assessed 02/22/25 05/25/25 11:38 Currently or been in a relationship where the following occur: No concerns reported Const General: no acute distress and alert Orientation/consciousness: patient oriented x3 HENMT Head: Yes normocephalic Ears: external ears normal General nose exam: Normal external nose present and No nasal discharge present Face and sinus: Yes face symmetric Mouth: Normal oral and palatal mucosa present and moist mucous membranes Eyes General: appearance normal, both eyes and all related structures Neck Neck: Yes full ROM, Yes no lymphadenopathy and Yes supple Thyroid: Thyroid normal Resp Effort & Inspection: normal respiratory effort and able to speak in complete sentences Auscultation: clear to auscultation bilaterally Cardio Rate: regular rate Rhythm: regular rhythm Heart sounds: S1 normal heart sound present and S2 normal heart sound present GI Palpation (GI): Soft to palpation, nontender, no guarding and no masses Auscultation: normal bowel sounds General: Yes no CVA tenderness Back/Spine/Pelvis Back: no CVA tenderness and No back tenderness Skin General skin exam: no rashes or lesions noted Nails: other Neuro General: patient oriented x3, gait normal, moves all extremities, Normal light touch and pain sensation, no focal motor deficits and CN's II-XI intact bilaterally Cognition (Neuro): normal cognition Gait exam (Neuro): Normal gait present Motor exam (neuro): 5/5 motor strength present throughout Extrem General: Yes normal to inspection, Yes full ROM, Yes no joint enlargement, Yes no pedal edema and Yes normal gait Psych Appearance: grossly normal and well kempt Mental Status: mental status grossly normal Speech and movement: Normal speech and movement present Affect: normal affect Results Reviewed Results Reviewed: Name: Madison Bray Age/Sex: 49/F : 1975 Unit#: [id number] Attend Dr: Tiffany Lerner MD Re03/24/25 Status: DEP REF [facility] Disch: SPEC : [id number] TELLY: 03/24/25 STATUS: COMP REQ : [id number] RECD: 03/24/25-[address]: Tiffany Lerner MD COMP: 03/24/25 ENTERED: 03/24/[address] [facility] [address]: ORDERED: CBC Auto Diff Test Result Flag Reference WBC 4.1 L 4.8-10.8 X10*3/uL RBC 4.67 4.20-5.50 X10*6/uL HGB 14.1 12.0-16.0 g/dl HCT 42.0 37.0-47.0 % MCV 89.9 80.0-98.0 fL MCH 30.2 27.0-33.0 pg MCHC 33.6 31.0-35.0 g/dl RDW 13.4 11.0-16.0 % PLT 265 160-400 X10*3/uL MPV 10.1 9.4-12.3 fL Neut Pct Auto 54.0 45-73 % ImGran Pct Auto 0.2 0.0-0.4 % Lymp Pct Auto 32.9 20-40 % Lee Pct Auto 8.5 2-11 % Eos Pct Auto 2.9 0-4 % Baso Pct Auto 1.5 0-2 % NRBC Pct Auto 0.0 0.0-0.2 /100WBC ANC Neut Abs # 2.2 2.0-8.3 x10*3/uL ImGran Abs Auto 0.01 0.00-0.03 X10*3/uL Lymph Abs Auto 1.4 1.2-4.9 X10*3/uL Lee Abs Auto 0.4 0.1-1.2 X10*3/uL Eos Abs Auto 0.1 0.0-0.4 X10*3/uL Baso Abs Auto 0.1 0.0-0.2 X10*3/uL NRBC Abs Auto 0.000 0.0-0.012 X10*3/uL Name: Madison Bray Age/Sex: 49/F : 1975 Unit#: [id number] Attend Dr: Tiffany Lerner MD Re03/24/25 Status: DEP [facility] Disch: SPEC : [id number] TELLY: 03/24/25 STATUS: COMP REQ : [id number] RECD: 03/24/25-[address]: Tiffany Lerner MD COMP: 03/24/25 ENTERED: 03/24/[address]: ORDERED: Met Prof Fast, AST, ALT, Lipid Panel, Vitamin D 25-OH Test Result Flag Reference Sodium 141 135-145 mmol/L Potassium 4.3 3.3-5.1 mmol/L CL 108 96-108 mmol/L CO2 29 22-29 mmol/L Gap 8 L 12-20 BUN 16 9-16 mg/dL Creat 0.81 0.5-1.4 mg/dL eGFR > 60 Chronic Kidney Disease: Estimated GFR < 60 mL/min/1.73m2 Severe Kidney Disease: Estimated GFR < 15 mL/min/1.73m2 FBS 87 60-99 mg/dL CA 9.0 8.4-10.2 mg/dL AST (GOT) 20 5-31 U/L ALT (GPT) 22 0-31 U/L Triglyceride 82 <150 mg/dL Desirable Triglyceride: less than 150 mg/dL Borderline High Triglyceride 150-199 mg/dL High Triglyceride: 200-499 mg/dL Very High Triglyceride: greater than or equal to 5OO mg/dL Cholesterol 248 H <200 mg/dL Desirable Cholesterol: less than 200 mg/dL Borderline High Cholesterol: 200-239 mg/dL High Cholesterol: greater than 239 mg/dL LDL Calculated 184 H <100 mg/dL Desirable LDL: less than 100 mg/dL Near Optimal/Above Optimal LDL: 110-129 mg/dL Borderline High LDL: 130-159 mg/dL High LDL: 160-189 mg/dL Very High LDL: greater than or equal to 190 mg/dL HDL 48 >40 mg/dL Desirable HDL: greater than 40 mg/dL Note: This HDL assay may give artificially low results in patients with liver disease. Vitamin D 25-OH 39.0 >30 ng/mL Health Based Reference Values* < 20 ng/mL Deficient 20-30 ng/mL Insufficient > 30 ng/mL Sufficient Coding Level of Care Code Est Pt Level 4 (78587) Diagnoses Dyslipidemia E78.5 Perimenopausal symptoms N95.1 Assessment & Plan Assessment & Plan (1) Dyslipidemia: Code(s): E78.5 - Hyperlipidemia, unspecified Category: Medical Plan: Estimated 10 year risk for CVD using PREVENT calculator is at 1.9% and estimated 30 year risk of CVD is 14.1%. Patient declined starting any medication at this time. Advise patient to focus on a heart healthy diet and limits saturated and trans fats, limit red meat and full fat dairy products and avoid foods with partially hydrogenated oil in the ingredient list, while increasing soluble fiber like beans, olds, apples, pears in orange juice which help lower cholesterol absorption, Fulda 3 fatty acid like salmon and mackerel or vaccine supplement. Repeat another fasting lipid panel, enzymes in 3 (2) Perimenopausal symptoms: Code(s): N95.1 - Menopausal and female climacteric states Category: Medical Plan: Patient already on Mirena IUD . Advised to eat lots of fruits and vegetables, whole grain, lean protein healthy fats, perform weight-bearing exercises, dressed in layers, limit alcohol and caffeine, practice stress management techniques like meditation . Advised to discuss symptoms as well with her OBGYN at [facility] Orders: Orders Lipid Panel 3 Months E78.5 - Hyperlipidemia, unspecified Aspartate Amino Transferase 3 Months E78.5 - Hyperlipidemia, unspecified Alanine Aminotransferase 3 Months E78.5 - Hyperlipidemia, unspecified
--- OUTSIDE RECORDS SUMMARY | 2025-05-25 13:43 | XMS_ITS | Encounter Summary ---
Author Organization [facility] Address [address] [facility] [place] [address] Care Team Providers Care Store Receiving Clerk Name Role Phone Therese Jiang MD Primary Care Provider Dio Gonzáles Primary Care Provider [phone] [facility] Primary Care Provider Lewis Diaz MD Primary Care Provider [facility] Primary Care Provider Unavailgualberto e Encounter Details Date Type Department Care Team Description 10/11/2013 Hospital Medical Records [address] [place] [address] Alexandra Crowder MD Social History Tobacco Use Types Packs/Day Years Used Date Smoking Tobacco: Former Cigarettes 0 14 Q uit: 02/15/2017 Smokeless Tobacco: Never Comments:uses e cigarette, q uit vaping 2 weeks ago Alcohol Use Standard Drinks/Week Comments Yes 1.7 (1 standard drink = 0.6 oz p ure alcohol) couple drinks a night Sex Assigned at Date Recorded Not on file Job Start Date Occupation Industry Not on file Not on file Not on file documented as of this encounter Plan of Treatment Not on file documented as of this encounter Visit Diagnoses Not on filedocumented in this encounter Care Teams Store Receiving Clerk Relationship Specialty Start Date End Date Therese Jiang MD PCP - General 09/28/10 11/11/21 Dio Biggs [address] [place], [place] [phone] PCP - General Internal Medicine 11/12/21 10/13/22 [facility] [address] [place] [id number] PCP - General Internal Medicine 10/14/22 11/18/22 Lewis Boyle MD [address] [place] [id number] PCP - General Internal Medicine 11/19/22 02/16/23 [facility]cp [address] [place], [place] [phone] PCP - General Internal Medicine 02/17/23 documented as of this encounter
--- OUTSIDE RECORDS SUMMARY | 2025-05-25 13:43 | XMS_ITS | Encounter Summary ---
Author Organization [facility] Address [address] [facility] [place] [address] Care Team Providers Care Oracle Dba Name Role Phone [facility], Pcp Primary Care Provider Unavailabl e Encounter Details Date Type Department Care Team Description 03/15/2024 Transfer Records Medical Records [address] [place] [address] Abstract, Provider Social History Tobacco Use Types Packs/Day Years [...] on filedocumented in this encounter Care Teams Oracle Dba Relationship Specialty Start Date End Date Community, Pcp PCP - General Internal Medicine 02/17/23 documented as of this encounter
--- OUTSIDE RECORDS SUMMARY | 2025-05-25 13:43 | XMS_ITS | Encounter Summary ---
Author Organization [facility] Address [address] [place] [address] Care Team Providers Care Bark Fitter Name Role Phone Lewis Boyle MD Primary Care Provider [facility], Pcp Primary Care Provider Unavailabl e Encounter Details Date Type Department Care Team Description 12/05/2022 Telephone General Surgery - [address] [place] [address] Madison Sanchez MD [address] [place] [id number] Social History Tobacco Use Types Packs/Day Years [...] on file documented as of this encounter Miscellaneous Notes * Telephone Encounter - Emili Harris M.A. - 12/06/2022 9:43 AM EDT Pt booked for follow up with you 01/29. MRI order was in from her obgyn so I gave her the number to [facility] to schedule. * Telephone Encounter - Madison Sanchez MD - 12/05/2022 12:52 PM EDT Please contact patient. She is overdue for clinical exam and MRI (at high risk for breast CA). Doesshe wish to be seen at the breast ctr? documented in this encounter Plan of Treatment Not on file documented as of this encounter Visit Diagnoses Not on filedocumented in this encounter Care Teams Bark Fitter Relationship Specialty Start Date End Date Lewis Boyle MD [address] [place] [phone] PCP - General Internal Medicine 11/19/22 02/16/23 [facility], Pcp [address] [place] [id number] PCP - General Internal Medicine 02/17/23 documented as of this encounter
--- OUTSIDE RECORDS SUMMARY | 2025-05-25 13:43 | XMS_ITS | Encounter Summary ---
Author Organization [facility] Address [address] [facility] [place] [address] Care Team Providers Care Microwave Remote Sensing Scientist Name Role Phone Therese Jiang MD Primary Care Provider Dio Gonzáles Primary Care Provider [phone] [facility], Pcp Primary Care Provider Unavailgualberto e Lewis Boyle MD Primary Care Provider [facility], Pcp Primary Care Provider Unavailabl e Reason for Visit * Reason Onset Date Comments External Sleep Study Request 05/11/2019 Yazmin e sleep study Encounter Details Date Type Department Care Team Description 05/11/2019 Telephone Medicine/Pediatrics - [address] [phone] Madison Olivas MD External Sleep Study Request (Home sleep study) Social History Tobacco Use Types Packs/Day Years [...] encounter Miscellaneous Notes * Telephone Encounter - Negar Johnson - 05/11/2019 8:40 AM EST [facility] auth # [id number] 05/06/2019- 07/15/2019 [id number] Order, benefits faxed to Sleep Medicine Notification letter sent. documented in this encounter Plan of Treatment Not on file documented as of this encounter Visit Diagnoses Not on filedocumented in this encounter Care Teams Microwave Remote Sensing Scientist Relationship Specialty Start Date End Date Therese Jiang MD PCP - General 09/28/10 11/11/21 Dio Biggs [address] [place], [place] [phone] PCP - General Internal Medicine 11/12/21 10/13/22 [facility] [place] [phone] PCP - General Internal Medicine 10/14/22 11/18/22 Lewis Boyle MD [address] [place] [phone] PCP - General Internal Medicine 11/19/22 02/16/23 [facility], Pcp [address] [place] [id number] PCP - General Internal Medicine 02/17/23 documented as of this encounter
--- OUTSIDE RECORDS SUMMARY | 2025-05-25 13:43 | XMS_ITS | Clinical Summary ---
Author Organization [facility] Address [address] [facility] [place] [address] Care Team Providers Care School Resource Officer Name Role Phone Community, Pcp Primary Care Provider Unavailabl e Allergies No known active allergies Medications Medication Sig Dispensed Refills Start Date End Date Status Cholecalciferol (Vitamin D3) 1.25 MG (10594 UT) CapIndications:Vitamin D deficiency Take 1 capsule by mouth once a week. 24 capsule 0 07/10/2021 Active Levonorgest-Eth Estrad 91-Day 0.15-0.03 &0.01 MG TabIndications:Encount er for surveillance of contraceptive pills Take 1 Tablet by mouth daily. 91 Tablet 0 04/22/2024 Active Active Problems Problem Noted Date Encounter for surveillance of contracept andres pills 08/09/2020 Last Assessment & Plan: Plan to continue with OCPs as patient is pleased with this form of contraception. Rx for 1 year previously provided. BP WNL. Return for annual exam or sooner as needed. Abnormal mammogram 05/26/2020 Overview: Has repeat biopsy scheduled due to BIRADS 4 mammo Anxiety 04/12/2020 Atypical squamous cell [place] es of undetermined significance (ASCUS) on cervical cytology with positive high risk human papilloma virus (HPV) 09/24/2017 Overview: 03/2013 - Neg, neg HPV 08/2017 - ASCUS, +HPV 09/24/17 - Colpo - MICHAEL I, needs repeat co-testing in 1 year 2018 Negative pap 2019 negative pap Increased risk of breast cancer 05/11/20 14 BRCA negative 05/09/2014 History of section 02/16/2013 Tobacco use 12/08/2012 Weight loss 05/18/2012 Fatigue 05/18/2012 Tension headache 01/22/2011 Resolved Problems Problem Noted Date Resolved Date IUD threads lost 04/12/2020 05/26/2020 Last Assessment & Plan: Pelvic ultrasound ordered to assess IUD position. If IUD found to be intracavitary, patient to return for IUD exchange Group B streptococcal infection 07/22/2013 11/19/2013 Overview: + in urine on 07/22/2013 , negative ERIC Large for dates 07/07/2013 11/19/2013 Overview: 07/07/2013 Growth in the 73% 09/02/2013 Growth in the 83% Rh negative status during 04/29/2013 11/19/2013 Overview: Rhogam @ 28 weeks and Given 07/28/13 Previous section 04/29/20132013 Overview: [place] [facility] [place], baby 9 lbs 14 oz Supervision of other normal 02/16/2013 11/19/2013 Overview: 1) [facility] delivery: office: [place] Chart sent to hospital on the following dates: 1st trimester 2nd trim 04/29/2013 After GTT 08/25/2013 After GBS 2) Blood Type: O negative 3) GBS: POSITIVE IN URINE Date: 07/22/2013 4) [place] Screen: MSAFP negative 5) Plans: Early labor support identified: Arnaldo Flu Vaccine: 03/2013 TDap: 08/27/2013 given at work Feeding Plans: Breast Pedi: Dr. Jiang PP BCM: Shar Baby Name: Guillermo Juan Circumcision: YES FOB name: Arnaldo Joseph IMFei update Advanced maternal age in 02/16/2013 05/09/2014 Immunizations Name Administration Dates Next Due COVID-19 (Pfizer) Pt Reported 06/21/2021, 021,07/28/2020 Influenza (> 6 Months) 04/28/2021,2019,03/21/2018,01/17,03/27/2016,04/08/2015,04/02/2014 ,03/14/2013,02/22/2012 Pneumoccoccal(Adult) Polysac charide PPSV23 03/27/2016 TD (STATE SUPPLIED FOR ADULT S AND CHILDREN) 01/07/2007 Tdap 08/27/2013,01/22/2011 Family History Medical History Relation Name Comments CA Breast Aunt mat aunt 50's maternal Diabetes Father skin cancer Maternal Grandfather Alzheimer's dis Maternal Grandmother CA Breast Mother last 40's Stroke Paternal Grandfather of pneumonia in his 70s CA Breast Paternal Grandmother 1 95 Cancer of the Colon Uncle worked w ith asbestos-paternal CA Ovarian Negative Hx CA Prostate Negative Hx Uterine Cancer Negative Hx Relation Name Status Comments Aunt mat aunt 50's Alive Brother 1 Alive Brother 2 Alive Father Alive dm Maternal Grandfather degenat andres macular eye disease Maternal Grandmother Mother last 40's Alive breast Ca Paternal Grandfather (Age 70's) cva Paternal Grandmother 1 95 Paternal Grandmother 2 dm Son 1 Alive healthy; Shiva ; 11/07 Son 2 Alive Uncle Social History Tobacco Use Types Packs/Day Years Used Date Smoking Tobacco: Former Cigarettes 0 14 Q uit: 02/15/2017 Smokeless Tobacco: Never Tobacco Cessation:Counseling Given: Not Answered Comments:uses e cigarette, quit vaping 2 weeks ago Alcohol Use Standard Drinks/Week Comments Yes 1.7 (1 standard drink = 0.6 oz p ure alcohol) couple drinks a night Sex Assigned at Date Recorded Not on file Job Start Date Occupation Industry Not on file Not on file Not on file Last Filed Vital Signs Vital Sign Reading Time Taken Comments Blood Pressure 136/84 04/22/2024 9:42 AM EDT Pulse 88 04/22/2024 9:42 AM EDT Temperature 37.1 C (98.8 F) 01/29/2023 4:30 PM EDT Respiratory Rate 16 08/22/2021 1:30 PM EST Oxygen Saturation 98% 07/27/2015 12:59 PM EST Inhaled Oxygen Concentration - - Weight 83.3 kg (183 lb 9.6 oz) 04/22/2024 9:42 A M EDT Height 172.7 cm (5' 8 ) 04/22/2024 9:42 AM EDT Body Mass Index 27.92 04/22/2024 9:42 AM EDT Plan of Treatment Health Maintenance Due Date Last Done Comments BASELINE HEALTH EXAM 40-64 08/22/202308/22, 04/15/2019, 04/15/2019, Additional history exists DTAP/TDAP/TD (3 - Td or Tdap) 08/27/2023, 01/22/2011, 01/07/2007 Breast Cancer High Risk Screening (Annual Breast MRI) 01/04/2024 01/03/2023, 05/10/2020 BMI CHECK/ADVISE 06/30/2024 04/22/2024, , 01/29/2023, Additional history exists MAMMOGRAM 08/05/2024 08/05/2023, 12/29, 07/30/2022, Additional history exists Covid-19 Vaccine (2022-2 4 season) 2025 06/21/2021, 08/18/2020, 07/28/2020 INFLUENZA (#1) 2025 04/28/2021, 02/2020, 02/28/2019 (External Completion of test per patient (Patient reports normal results)), Additional history exists CERVICAL CANCER SCREENING 04/12/20252019, 04/09/2019, 09/03/2017, Additional history exists CHOLESTEROL SCREENING 08/22/2026 08/22/2021 , 04/15/2019, 12/09/2016, Additional history exists PNEUMOCOCCAL VACCINE FOR HIG H RISK PATIENTS (#1) 2042 03/27/2016 Care Teams School Resource Officer Relationship Specialty Start Date End Date Community, Pcp PCP - General Internal Medicine 02/17/23
--- OUTSIDE RECORDS SUMMARY | 2025-05-25 13:43 | XMS_ITS | Encounter Summary ---
Author Organization [facility] Address [address] [place] [address] Care Team Providers Care Twill Cutter Name Role Phone Therese Jiang MD Primary Care Provider Dio Gonzáles Primary Care Provider [phone] [facility], Pcp Primary Care Provider Unavailabl e Lewis Boyle MD Primary Care Provider [facility], Pcp Primary Care Provider Unavailabl e Reason for Visit * Reason Onset Date Comments TEST RESULTS 07/22/2013 Encounter Details Date Type Department Care Team Description 07/22/2013 Telephone DOCKING SAW OPERATOR - [address] [id number] Liliana Vargas CNM TEST RESULTS Social History Tobacco Use Types Packs/Day Years Used Date Smoking Tobacco: Former Cigarettes 0.5 14 Q uit: 02/15/2013 Smokeless Tobacco: Never Alcohol Use Standard Drinks/Week Comments No 1.7 (1 standard drink = 0.6 oz p ure alcohol) wine, rum and coke Sex Assigned at Date Recorded Not on file Job Start Date Occupation Industry Not on file Not on file Not on file documented as of this encounter Miscellaneous Notes * Telephone Encounter - Liliana Vargas CNM - 07/22/2013 4:37 PM EST Spoke to patient. Denies urinary symptoms. Discussed that ERIC in negative, however, GBS is present in her urine. SHe will require antibiotics. Patient verbalizes understanding. Liliana Vargas CNM * Telephone Encounter - Liberty Bradford - 07/22/2013 4:12 PM EST Pt called back, please call at same number. * Telephone Encounter - Liliana Vargas CNM - 07/22/2013 3:47 PM EST Telephone Information: Work Phone Not on file. Attempted to reach patient to discuss urine culture with +GBS. Message left for her to call back. Liliana Vargas CNM documented in this encounter Plan of Treatment Not on file documented as of this encounter Visit Diagnoses Not on filedocumented in this encounter Care Teams Twill Cutter Relationship Specialty Start Date End Date Therese Jiang MD PCP - General 09/28/10 11/11/21 Dio Biggs [address] [place] [address] PCP - General Internal Medicine 11/12/21 10/13/22 [facility], Pcp [address] [place] [address] PCP - General Internal Medicine 10/14/22 11/18/22 Lewis Boyle MD [address] [place] [address] PCP - General Internal Medicine 11/19/22 02/16/23 [facility], Pcp [address] [place] [address] PCP - General Internal Medicine 02/17/23 documented as of this encounter
--- OUTSIDE RECORDS SUMMARY | 2025-05-25 13:43 | XMS_ITS | Encounter Summary ---
Author Organization [facility] Address [address] [place] [address] Care Team Providers Care Bowl Attendant Name Role Phone Therese Jiang MD Primary Care Provider Dio Gonzáles Primary Care Provider [phone] Count Includes [facility], Pcp Primary Care Provider Unavailgualberto e Lewis Boyle MD Primary Care Provider Count Includes [facility], Pcp Primary Care Provider Unavailabl e Reason for Visit * Reason Onset Date Comments REFERRAL 06/20/2014 Encounter Details Date Type Department Care Team Description 06/20/2014 Telephone Adult Medicine - [address] [address] Sonja Fontanez PA-C REFERRAL Social History Tobacco Use Types Packs/Day Years Used Date Smoking Tobacco: Former Cigarettes 0.5 14 Q uit: 02/15/2013 Smokeless Tobacco: Never Alcohol Use Standard Drinks/Week Comments Yes 1.7 (1 standard drink = 0.6 oz p ure alcohol) socc Sex Assigned at Date Recorded Not on file Job Start Date Occupation Industry Not on file Not on file Not on file documented as of this encounter Miscellaneous Notes * Telephone Encounter - Lillian Albert - 06/20/2014 9:28 AM EST Pt was put on the general surgery referrals report for: cyst like lesion R upper scapular region-itches Priority: Next Available; Pt was called and a letter was sent; pt has not responded. documented in this encounter Plan of Treatment Not on file documented as of this encounter Visit Diagnoses Not on filedocumented in this encounter Care Teams Bowl Attendant Relationship Specialty Start Date End Date Therese Jiang MD PCP - General 09/28/10 11/11/21 Dio Biggs [address] [place] [id number] PCP - General Internal Medicine 11/12/21 10/13/22 Count Includes [facility], Pcp [address] [place] [address] PCP - General Internal Medicine 10/14/22 11/18/22 Lewis Boyle MD [address] [place] [phone] PCP - General Internal Medicine 11/19/22 02/16/23 Count Includes [facility], Pcp [address] [place], [place] [phone] PCP - General Internal Medicine 02/17/23 documented as of this encounter
--- OUTSIDE RECORDS SUMMARY | 2025-05-25 13:43 | XMS_ITS | Encounter Summary ---
Author Organization [facility] Address [address] [facility] [place] [address] Care Team Providers Care Horticulture Teacher Name Role Phone Therese Jiang MD Primary Care Provider Dio Gonzáles Primary Care Provider [phone] [facility], Pcp Primary Care Provider Lewis Diaz MD Primary Care Provider [facility], Pcp Primary Care Provider Lesvia juárez Encounter Details Date Type Department Care Team Description 11/01/2010 Hospital Medical Records [address] [place] [address] Social History Tobacco Use Types Packs/Day Years [...] on filedocumented in this encounter Care Teams Horticulture Teacher Relationship Specialty Start Date End Date Therese Jiang MD PCP - General 09/28/10 11/11/21 Dio Biggs [address] [place] [address] PCP - General Internal Medicine 11/12/21 10/13/22 Community, Pcp [address] [place] [address] PCP - General Internal Medicine 10/14/22 11/18/22 Lewis Boyle MD [address] [place] [address] PCP - General Internal Medicine 11/19/22 02/16/23 [facility], Pcp [address] [place] [address] PCP - General Internal Medicine 02/17/23 documented as of this encounter
--- OUTSIDE RECORDS SUMMARY | 2025-05-25 13:43 | XMS_ITS | Encounter Summary ---
Author Organization [facility] Address [address] [facility] [place] [address] Care Team Providers Care Plastic Boat Patcher Name Role Phone Therese Jiang MD Primary Care Provider Dio Gonzáles Primary Care Provider [phone] [facility], Pcp Primary Care Provider Unavailabl e Lewis Boyle MD Primary Care Provider [facility], Pcp Primary Care Provider Unavailabl e Reason for Visit * Reason Onset Date Comments radiology 05/05/2013 mri testing. Encounter Details Date Type Department Care Team Description 05/05/2013 Telephone Adult Medicine - [address] [address] Sonja Fontanez PA-C radiology (mri testing.) Social History Tobacco Use Types Packs/Day Years [...] encounter Miscellaneous Notes * Telephone Encounter - Leilani Conley - 05/05/2013 3:01 PM EST [place] is and does not know why you requested the breast mri, she would like to talk to youand her OB Doctor before booking any appointments. Thanks. documented in this encounter Plan of Treatment Not on file documented as of this encounter Visit Diagnoses Not on filedocumented in this encounter Care Teams Plastic Boat Patcher Relationship Specialty Start Date End Date Therese Jiang MD PCP - General 09/28/10 11/11/21 Dio Biggs [address] [place] [address] PCP - General Internal Medicine 11/12/21 10/13/22 [facility], Pcp [address] [place] [address] PCP - General Internal Medicine 10/14/22 11/18/22 Lewis Boyle MD [address] [place] [address] PCP - General Internal Medicine 11/19/22 02/16/23 [facility], Pcp [address] [place] [address] PCP - General Internal Medicine 02/17/23 documented as of this encounter
--- OUTSIDE RECORDS SUMMARY | 2025-05-25 13:43 | XMS_ITS | Clinical Summary ---
Author Organization [facility] [address] [facility] [address] Address [address] [facility] [place] [address] Phone Care Team Providers Care Screen Roller Name Role Phone Dio Biggs MD Primary Care Provider [phone] Allergies No known active allergies Medications L [...] 05/18/2012 Weight loss 05/18/2012 Tension headache 01/22/2011 Immunizations Immunization Administration Dates Next Due Influenza trivalent, 0.5mL, preservative free (Fluarix; FluLaval; Fluzone) ages 6mo and older (Afluria) 3 years and older 04/28/2021,03/08/2020,03/21/2018,01/17,03/27/2016,04/08/2015,04/02/2014 ,03/14/2013,02/22/2012 [employer] SARS-CoV-2 COVID-19, mRNA, LNP-S, preservative free 06/21/2021,08/18/2020,07/28/2020 Pneumococcal polysaccharide 23 valent (Pneumovax 23) 2yo and older 03/27/2016 Td Tetanus diptheria (Tdvax) 7yo and older 01/07/2007 Tdap Tetanus diptheria acell ular pertussis (Boostrix; Adacel) 7yo and older 08/27/2013,01/22/2011 Surgical History Surgery Date Site/Laterality Comments SECTION PROCEDURE: HISTORICAL DELIVERY; COMMENT: 2013 CERVICAL BIOPSY W/ LOOP ELECTRODE EXCISION PROCEDURE: CO CONIZATION CERVIX W/WO D&C RPR ELTRD EXC; COMMENT: prior to having kids (first child born at age 35) BREAST BIOPSY PROCEDURE: BX BREAST; PERC NEEDLE CORE W/IMAG GUID; COMMENT: rt nipple milk duct removed BREAST SURGERY Right PROCEDURE: CO UNLISTED PROCEDURE BREAST; COMMENT: rt milk duct [...] Used Date Smoking Tobacco: Former Cigarettes 0 Q uit: 02/15/2017 Smokeless Tobacco: Never Tobacco [...] 9:30 AM EST Appointment Radiology Department - [address] [address] 08/10/2025 10:00 AM EST Appointment Radiology Department - [address] [address] Health Maintenance Due Date Last Done Comments Colorectal Cancer Screening: Colonoscopy 1977 Hepatitis B Vaccines (1 of 3 - 19+ 3-dose series) 1996 Social Influencers of Health Screening 06/08/2022 DTaP,Tdap,and Td Vaccines (4 - Td or Tdap) 08/27/2023 08/27/2013, 01/22/2011, 01/07/2007 Depression Screening 06/30/2024 COVID-19 Vaccine (4 - season) 2025 06/21/2021, 08/18/2020, 07/28/2020 Influenza Vaccine (#1) 2025 , 04/25/2023, 02/27/2022, Additional history exists Cervical Cancer Screening: HPV 04/12/2025 04/12/2020 Breast Cancer Screening 02/07/2026 02/08/20, 08/17/2024, 08/05/2023, Additional history exists Cholesterol Screening (Lipid Panel) 08/22/2026 08/22/2021 RSV Immunization Adult Patients (1 - 1-dose 75+ series) 2052 Pneumococcal Vaccine: Pediatrics (0 to 5 Years) [...] Procedure Name Priority Date/Time Associated Diagnosis Comments MG MAMMO DIAGNOSTIC ADDL VIEWS RIGHT Routine 02/07/2025 9:17 AM EDT Abnormal mammogram LIPID PANEL Routine 08/22/2021 HEPATITIS C SCREENING Routine 07/10/2021 HIV SCREENING Routine 07/10/2021 HPV Routine 04/12/2020 from Last 3 Months or Most Recently Relevant to Health Maintenance Results * MG Mammo Diagnostic Addl Views Right [...] is recommended in 6 months. MAMMO LOCATION: [facility], [address] [place] [address], [phone], . -------- FINAL REPORT -------- Dictated By: Brenna Palomares Dictated Date: 02/07/2025 09:36 ET Assigned Physician: Brenna Palomares Reviewed and Electronically Signed By: Brenna Palomares Signed Date: 02/07/2025 09:54 ET Workstation ID: [id number] Transcribed By: Self Edit Transcribed Date: 02/07/2025 [...] Resu lt * (ABNORMAL) Lipid panel (08/22/2021) [facility] LDL/HDL Ratio 5(A) 0 - 4 Triglycerides 186(A) 0 - 150 mg/dL Cholesterol 238(A) 0 - 200 mg/dL HDL 49 >=40 mg/dL LDL Cholesterol 152(A) 0 - 100 mg/dL Blood [place]ous blood specimen / [place] [facility] [place] BLOOD ORDERABLES Anjali l Result * HIV Screening (07/10/2021) [facility] HIV Screening Abstracted [facility] [place]ALTH MAINTENANCE Final Result * Hepatitis C Screening (07/10/2021) [facility] Hepatitis C Screening Abstracted [facility] [place]ALTH MAINTENANCE Final Result * Cervical Cancer Screening: HPV (04/12/2020) [facility] Cervical Cancer Screening: HPV Negative, Abstracted us Historical Provider HEALTH MAINTENANCE Final Result from Last 3 Months or Most Recently Relevant to Health Maintenance Insurance Care Teams Screen Roller Relationship Specialty Start Date End Date Dio Biggs MD [address] [place] [address] [place] PCP - General Internal Medicine 11/12/21
--- OUTSIDE RECORDS SUMMARY | 2025-05-25 13:43 | XMS_ITS | Encounter Summary ---
Author Organization [facility] Address [address] [place] [address] Care Team Providers Care Document Control Manager Name Role Phone Lewis Boyle MD Primary Care Provider [facility], Pcp Primary Care Provider Unavailabl e Reason for Visit * Reason Onset Date Comments Error 01/28/2023 Encounter Details Date Type Department Care Team Description 01/28/2023 Telephone Adult Medicine [address] [address] Lewis Boyle MD [address] [place] [address] [id number] Error Social History Tobacco Use Types Packs/Day Years [...] file Not on file Not on file COVID-19 Exposure Response Date Recorded In the last 10 days, have yo u been in contact with someone who was confirmed or suspected to have Coronavirus/COVID-19? No / Unsure 01/22/2023 12:29 PM EDT documented as of this encounter Miscellaneous Notes * Telephone Encounter - Brianna Burden - 01/28/2023 1:18 PM EDT documented in this encounter Plan of Treatment Not on file documented as of this encounter Visit Diagnoses Not on filedocumented in this encounter Care Teams Document Control Manager Relationship Specialty Start Date End Date Lewis Boyle MD [address] [place] [phone] PCP - General Internal Medicine 11/19/22 02/16/23 [facility], Pcp [address] [place] [id number] PCP - General Internal Medicine 02/17/23 documented as of this encounter
== END 2025-05-25 12:13 | disposition home or self-care (01) ==
LOC: HO.HMCC 11:04
PROVIDERS: PCP Internal Medicine; Visit Provider Internal Medicine
DX: E78.5 Hyperlipidemia, unspecified (principal); N95.1 Menopausal and female climacteric states